=== PATIENT | female | born 2005 | race Two or more races ===

== ENCOUNTER 2025-03-16 18:46 | Emergency (ER) | payer OTHER ==
[~2025-03-16] VITALS: Ht 167.6 cm; Wt 86.2 kg
[2025-03-16 20:41] LABS: HEMATOCRIT 35.6 % (36.0-45.00); HEMOGLOBIN 11.4 g/dL (12.0-15.00); MEAN CELL VOLUME 78.6 fL (80.00-100.00); MEAN CORPUSCULAR HEMOGLOBIN 25.2 pg (27.00-32.0); MEAN CORPUSCULAR HGB CONC 32.1 g/dl (32.0-36.0); PLATELET COUNT 257 K/uL (150-450); RED BLOOD COUNT 4.54 M/uL (4.00-6.00); RED CELL DISTRIBUTION WIDTH 16.1 % (11.5-14.5)
[2025-03-16 20:52] LABS: URINE APPEARANCE Clear; URINE BILIRRUBIN Negative (NEGATIVE); URINE BLOOD Negative; URINE COLOR Yellow; URINE GLUCOSE Negative (NEGATIVE); URINE KETONE Negative (NEGATIVE); URINE LEUKOCYTE Moderate; URINE NITRATE Positive; URINE PROTEIN Negative (NEGATIVE); URINE UROBILINOGEN 0.2 E.U./dl
[2025-03-16 20:53] LABS: URINE BACTERIA 2381.8 uL (0.0-1933); URINE EPITHELIAL CELLS 29.6 uL (0.0-38.8); URINE RBC 9.7 uL (0.0-20.8)
[2025-03-16] MEDS ORDERED: KETOROLAC TROMETHAMINE 30 MG VIAL IM STA (21:14)
[2025-03-16] MEDS ORDERED: DEXAMETHASONE SODIUM PHOSPHATE 4 MG/ML VIAL IM STA (21:15)
[2025-03-16] MEDS ORDERED: CEFTRIAXONE SODIUM 1,000 MG VIAL IM STA (21:15)
[2025-03-16 21:21] LABS: ALBUMIN 3.9 gm/dL (3.4-5.0); BILIRUBIN TOTAL 0.11 mg/dL (0.3-1.2); CALCIUM 9.5 mg/dL (8.5-10.1); CREATININE SERUM 0.78 mg/dL (0.55-1.02); GFR 95.14; GLOBULINA 3.5 G/DL (2.4-3.5); POTASSIUM 4.24 mEq/L (3.5-5.1); TOTAL PROTEIN 7.4 gm/dL (6.4-8.2)
[2025-03-16] MEDS ORDERED: KETOROLAC TROMETHAMINE 30 MG VIAL ONE (21:26)
[2025-03-16] MEDS ORDERED: DEXAMETHASONE SODIUM PHOSPHATE 4 MG/ML VIAL ONE (21:26)
[2025-03-16] MEDS ORDERED: CEFTRIAXONE SODIUM 1,000 MG VIAL ONE (21:26)
[2025-03-16] MEDS ORDERED: LIDOCAINE HCL 1% 10ML VIAL ONE (21:31)
[2025-03-16] MEDS ORDERED: CIPRO500 MG PO (22:01)
== END 2025-03-16 22:18 | disposition home or self-care (01) ==
LOC: EMR PED 18:47 → ER 18:47 → EMR PED 19:53
DX: N39.0 Urinary tract infection, site not specified (principal)